=== PATIENT | female | born 1995 | race Two or more races ===

== ENCOUNTER 2020-03-28 23:53 | Emergency (ER) | payer BC ==
[~2020-03-28] VITALS: Ht 162.6 cm; Wt 70.4 kg
--- NOTE | 2020-03-29 00:54 | NUR ---
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
--- NOTE | 2020-03-29 01:06 | NUR ---
TASK RN: PT IN FOR ABDOMINAL PAIN THAT STARTED LAST NIGHT AND WAS WORSENING THIS AM. PT STATES IT FEELS "LIKE A SHARP GAS PAIN AND SITTING UP HELPS A BIT." PT NAD, VSS, GROSS NEURO INTACT, LAST BM EARLIER YESTERDAY, VERY LITTLE GAS PASSING. GIVEN WARM BLANKETS FOR COMFORT, BS REPORT TO AGAPITO MADDOX. PT PLACED ON BP MONITORING. AMBUALTED TO AND FROM RESTROOM WITH A SMOOTH AND STEADY GAIT
[2020-03-29 01:55] VITALS: BP 128/57
--- NOTE | 2020-03-29 02:15 | NUR ---
Pt expressing interest in leaving. Md at bedside to discuss poc w/ pt.
[2020-03-29 02:24] LABS: MICROSCOPIC NOT IND
[2020-03-29 02:28] LABS: BASOPHILS # (AUTO) 0.03 x10^3/uL (0-0.1); BASOPHILS % (AUTO) 0 % (0-1); EOSINOPHILS % (AUTO) 0 % (1-7); LYMPHOCYTES # (AUTO) 2.71 x10^3/uL (1-3.4); LYMPHOCYTES % (AUTO) 31 % (22-44); MD NO; MEAN CORPUSCULAR HEMOGLOBIN 31.6 pg (27.0-34.8); MEAN CORPUSCULAR HGB CONC 32.6 g/dL (32.4-35.8); MEAN CORPUSCULAR VOLUME 96.8 fL (80-100); MEAN PLATELET VOLUME 8.2 fL (7.4-10.4); MONOCYTES # (AUTO) 0.64 x10^3/uL (0.2-0.8); MONOCYTES % (AUTO) 7 % (2-9); NEUTROPHILS # (AUTO) 5.42 x10^3/uL (1.8-6.8); NEUTROPHILS % (AUTO) 62 % (42-75); PLATELET COUNT 249 x10^3/uL (130-400); RED BLOOD COUNT 4.41 x10^6/uL (3.82-5.3); RED CELL DISTRIBUTION WIDTH 13.1 % (9.6-15.2)
[2020-03-29 02:38] LABS: ALANINE AMINOTRANSFERASE 11 U/L (12-78); ALBUMIN 3.7 g/dL (3.4-5.0); ANION GAP 4 mmol/L (5-15); CHLORIDE 109 mmol/L (98-107); CREATININE 0.91 mg/dL (0.55-1.02)
[2020-03-29 02:43] LABS: ALKALINE PHOSPHATASE 77 U/L (45-117); BILIRUBIN,TOTAL 0.5 mg/dL (0.2-1.0); TOTAL PROTEIN 7.6 g/dL (6.4-8.2)
== END 2020-03-29 02:34 | disposition home or self-care (01) ==
LOC: ED 03-29 01:30
DX: K29.00 Acute gastritis without bleeding (principal); R10.13 Epigastric pain
CPT/HCPCS: 36415; 80053; 81003; 83690; 84703; 85025; 99283